=== PATIENT | female | born 1940 | race Two or more races ===

== ENCOUNTER 2024-04-24 09:35 | Day surgery (SDC) | payer MEDICARE, MEDICAID, SELFPAY ==
--- NOTE | 2024-04-21 07:00 | EKG_ITS ---
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
[2024-04-21 09:36] VITALS: BMI 30.7
[2024-04-21 10:06] LABS: Collection Type, Urine Clean Catch
[2024-04-21 11:06] LABS: Bilirubin,Urine Negative (Negative); Blood,Urine 1+ (Negative); Clarity,Urine Clear (Clear/Hazy); Color,Urine Lt-Yellow (Lt Yel-Yel); Glucose, Urine Negative (Negative); Ketones,Urine Negative (Negative); Leukocyte Esterase,Urine Negative (Negative); Nitrite,Urine Negative (Negative); Protein,Urine Trace (Neg - Trace); RBC,Urine 7 /hpf (0-3); Specific Gravity,Urine 1.011 (1.001-1.035); Squamous Epithelial Cell,Urine 3 /hpf (0-5); Urobilinogen,Urine Negative mg/dL (0.0-1.0); WBC,Urine 2 /hpf (0-5)
[2024-04-21 11:10] LABS: Basophils # (Auto) 0.1 Thou/mm3 (0.0-0.2); Basophils % (Auto) 1 % (0-2.5); Eosinophils # (Auto) 0.1 Thou/mm3 (0.0-0.5); Eosinophils % (Auto) 2 % (0-10); Hematocrit 40.7 % (36.0-46.0); Hemoglobin 13.5 g/dL (12.0-16.0); Immature Granulocytes % (Auto) 0 % (0-0); Immature Granulocytes Auto 0.02 Thou/mm3 (0.00-0.00); Lymphocytes # (Auto) 1.8 Thou/mm3 (1.0-4.8); Lymphocytes % (Auto) 30 % (10-50); Mean Corpuscular HGB Conc 33.2 g/dl (31.0-37.0); Mean Corpuscular Hemoglobin 31.3 pg (25.0-35.0); Mean Corpuscular Volume 94 fL (80-100); Monocytes # (Auto) 0.5 Thou/mm3 (0.0-0.8); Monocytes % (Auto) 9 % (0-12); Neutrophils # (Auto) 3.3 Thou/mm3 (1.8-7.7); Neutrophils % (Auto) 57 % (37-80); Nucleated Red Blood Cell % 0 /100 WBC (0); Platelet Count 218 Thou/mm3 (140-440); RDW Standard Deviation 44.3 fL (36.4-46.3); Red Blood Count 4.32 Miln/mm3 (4.00-5.20); White Blood Count 5.8 Thou/mm3 (3.6-11.0)
[2024-04-21 11:17] LABS: INR 0.9 (0.9-1.3); Partial Thromboplastin Time 30.2 Seconds (22.0-36.0); Prothrombin Time 10.3 Seconds (9.0-12.2)
[2024-04-21 11:45] LABS: Alanine Aminotransferase 20 U/L (10-49); Albumin, Serum 4.8 gm/dL (3.4-4.8); Albumin/Globulin Ratio 1.8 (1.2-2.2); Alkaline Phosphatase 131 U/L (46-116); Anion Gap 4 (7-16); Aspartate Amino Transferase 28 U/L (0-34); BUN/Creatinine Ratio 18 Ratio (12-20); Blood Urea Nitrogen 16 mg/dL (9-23); Calcium 9.8 mg/dL (8.3-10.6); Calcium (Corrected) 9.8 mg/dL (8.5-10.1); Carbon Dioxide 28.4 mMol/L (20.0-31.0); Chloride 106 mMol/L (98-107); Creatinine (Component) 0.9 mg/dL (0.6-1.3); Estimated Creatinine Clearance 41.1 mL/min (>60); Globulin 2.6 gm/dL (2.3-3.5); Glucose 99 mg/dL (74-106); Osmolality,Calculated 276 (275-295); Potassium 4.1 mMol/L (3.4-5.1); Sodium 138 mMol/L (136-145); Total Protein 7.4 gm/dL (5.7-8.2); eGFR > 60 See Note
--- NOTE | 2024-04-21 14:09 | SUR.PREOP ---
Cardiac history and records reviewed with Dr Chiang.
--- NOTE | 2024-04-21 14:10 | SUR.PREOP ---
Pt has a pacemaker but did not bring the pacemaker ID card.
[2024-04-21 14:28] LABS: Bilirubin,Total 0.3 mg/dL (0.3-1.2)
--- NOTE | 2024-04-22 11:09 | ESHP_ITS ---
HPI Date of Admission April 24, 2024 Chief Complaint Chief Complaint: Right upper quadrant abdominal pain and biliary colic. Gallstones. HPI This is an 83-year-old female she has gone to the emergency room several times in last 25 to 30 years and with complaints of right upper quadrant pain she was advised to have cholecystectomy many years ago but she declined at that time. She had multiple evaluations including CAT scan and HIDA scan among others with ultrasound exams. She was multiple times told that she had gallstones and she needs to have the cholecystectomy. Until this time she was not ready. Now lately for past 6 months to a year she is having very frequent right upper quadrant postprandial pain. He went to the emergency room and she was told that her gallbladder was all distended and there was a stone on the ultrasound. She is brought to the operating room for laparoscopic cholecystectomy possible open for ongoing symptomatic gallbladder disease with biliary colic and right upper quadrant pain. Risk benefits and alternatives were discussed with the patient and informed consent is obtained. She has a history of coronary artery disease she had angiogram and stent placement many years ago and she also had a pacemaker implanted on the left subclavian region. She is seeing a helicopter pilot instructor in [place] and she was cleared by the helicopter pilot instructor for having surgical procedure. Past Medical History Past Medical History NEUROLOGIC: Negative Neurological Disorders CARDIAC: Positive Cardiac Disorders, Coronary Artery Disease and Hypertension; Negative Congestive Heart Failure RESPIRATORY: Negative Respiratory Disorders or Chronic Obstructive Pulmonary Disease (COPD) GASTROINTESTINAL: Positive Gastrointestinal Disorders and Obesity; Negative Hepatitis GENITOURINARY: Negative Genitourinary Disorders or Renal Disease REPRODUCTIVE: Positive Previous Pregnancies MUSCULOSKELETAL: Negative Musculoskeletal Disorders ENT: Negative History of ENT Problems ENDOCRINE: Negative Endocrine Disorders, Diabetes Mellitus Type 1 or Diabetes Mellitus Type 2 HEMATOLOGIC: Negative Blood Disorders OTHER HISTORY: Positive Hospitalization (Abdominal pain), Chicken Pox and Measles; Negative Autoimmune Disease, Shingles, Blood Transfusions, Anesthesia Reactions or Cancer Family History FAMILY HISTORY: Negative Family Psychiatric Problems, Family Respiratory Disorders, Family Cardiac Disorders, Family Gastrointestinal Problems, Family Genitourinary Problems, Family Endocrine Disorders, Family Reproductive Disorders, Family Musculoskeletal Disorders, Family Cancer, Family Surgery or Family Anesthesia Reaction Surgical History SURGICAL: Positive Coronary Stent (2021), Pacemaker and Angiogram (coronary) Social History SMOKING STATUS: Current some day smoker Travel History EB[place]A RISK: No Meds Home Medications and Allergies Home Medications ?Medication ?Instructions ?Recorded ?Confirmed ?Type amlodipine 5 mg tablet 5 mg PO QDAY 04/21/24 04/21/24 History ibuprofen 600 mg tablet 600 mg PO TID PRN Pain 04/21/24 04/21/24 History Allergies Allergy/AdvReac Type Severity Reaction Status Date / Time No Known Allergies Allergy Verified 04/21/24 09:34 Exam Constitutional Constitutional: no acute distress Routine HEENT Exam Head: Present normocephalic Eye: Present EOMI and PERRL ENT: Present mucous membranes moist Routine Neck Exam Neck: Present supple and trachea midline Routine Chest/Breast/Axilla Exam Chest wall: Absent tenderness or mass Routine Respiratory Exam Respiratory: Present chest non-tender, lungs clear, normal breath sounds and no resp distress; Absent respiratory distress Routine Cardiovascular Exam Cardiovascular: Present RRR Comments: Pacemaker is present in the left subclavian region. Routine Abdominal Exam Abdominal: Present soft and normoactive bowel sounds Routine Extremities Exam Extremities: Present full ROM Routine Skin Exam Skin: Present intact, dry and warm Routine Neurological Exam Neurological: Present alert, oriented X3 and CN II-XII intact Routine Psychiatric Exam Psychiatric: Present normal affect and normal thought process Results Results: Laboratory Laboratory results: results reviewed Assessment & Plan Problem List (1) Recurrent biliary colic: Status: Acute (2) Coronary artery disease: Qualifiers: Coronary Disease-Associated Artery/Lesion type: [place] artery [place] vs. transplanted heart: [place] heart Associated angina: without angina Qualified Code(s): I25.10 - Atherosclerotic heart disease of [place] coronary artery without angina pectoris Status: Acute (3) Pacemaker: Status: Acute Plan Laparoscopic cholecystectomy possible open. Risk benefits alternatives were discussed with the patient and informed consent is obtained. Quality Measures Quality Measures none Advance care planning discussed with:: patient
[2024-04-24] VITALS (8 sets, daily range): BP systolic 105–144; BP diastolic 58–94; PULSE 67–101; RESP 12–20; TEMP 36.2–36.5; O2SAT 96–100
[2024-04-24] MEDS: RINGERS LACTATED 1000 ML 1,000 ML 60 ML IV (10:31)
--- NOTE | 2024-04-24 13:00 | PD.SUROPNT ---
Date of Procedure 04/24/24 Pre Op Diagnosis Biliary colic and abdominal pain in the right upper quadrant with postprandial exacerbation Post Op Diagnosis Hydrops of the gallbladder. Procedure Laparoscopic cholecystectomy Findings This patient had significant adhesions to the gallbladder and the liver and she had hydrops of the gallbladder with markedly distended gallbladder that required decompression with needle aspiration. Procedure Description In the preop area the procedure was discussed with the patient including risks benefits and alternatives. The risks include possible laparotomy, bleeding, infection bile duct injury and bile leak. Patient may require ERCP for retained stone or a bile leak. The anesthesia risks are to be explained to the patient by the anesthesiologist. Informed consent was obtained. The patient was positioned supine on the operating table and general anesthesia was administered in a satisfactory manner by the anesthesiologist. The patient is positioned in the reverse Trendelenburg position with the right side up. Orogastric tube is introduced into the stomach to decompress the stomach. Prophylactic antibiotics were given in timely manner. Antiembolism measures were taken. The abdomen chest and groin regions were prepped and draped in usual manner. A supraumbilical verticle incision was made and deepened through the layers of abdominal wall and open laparoscopic procedure is carried out. The balloon catheter was introduced and pneumoperitoneum is achieved. A 30? scope was used. Under direct vision right subxiphoid, midclavicular and anterior axillary line trochars were introduced. The gallbladder is then lifted up and a laparoscopic lysis of adhesions was carried out. The gallbladder is freed from the adhesions and the edgardo hepatis is exposed. The triangle of Calot is gently dissected and the artery to cystic duct is divided with harmonic ultrasonic uriel. The posterior view of safety was achieved. The cystic artery and cystic duct are identified individually and they were ligated close to the gallbladder with hemoclips. There was an accessory cystic artery as well as multiple branches of the cystic artery proper. They were all individually controlled and divided. The cystic artery and the cystic duct are divided between the hemoclips close to the gallbladder. Care was taken to avoid tenting of the common duct. There is a significant length of cystic duct stump towards the common bile duct. The gallbladder is dissected and lifted from the liver bed using harmonic ultrasonic uriel. The gallbladder bed hemostasis is achieved. The gallbladder is retrieved out of the peritoneal cavity in a specimen bag. The balloon cannula is reintroduced and pneumoperitoneum is reestablished. The peritoneal cavity is thoroughly irrigated with sterile saline solution and hemostasis again ascertained. All the cannulas are removed under direct vision there is no bleeding from the cannula sites. The linea alba repair is carried out with the 0 Vicryl continuous suture. The subcutaneous tissues approximated by a 3-0 chromic and skin by 4-0 monocril subcuticular stitch. For the rest of the trocar site incisions are closed in 2 layers with a 3-0 chromic and 4-0 monocril subcuticular stitch. Dermabond is applied. Sterile dressings are applied. Complications none estimated loss of blood 10 mL Patient is transferred to the recovery room in a satisfactory condition. Anesthesia GETA Drains None. Implants None. Pathology / specimen Other (Gallbladder with contents) Estimated Blood Loss 5 Condition Stable Disposition PACU Surgeon Sanjay Hallman MD Surgical Staff Operation Date: 04/24/24 12:15 Case Staff Anesthesiologist: Davy Álvarez RN First Assistant: Emili Lopez RN correspondence review clerk Braulio Vera dairy technologist
--- NOTE | 2024-04-24 13:13 | SUR.PHASEI ---
1313: Pt. AAOx4, vitals stable, breathing unlabored, complaint of pain, will give pain med, no complaint of nausea, x4 dressing to ABD CDI, no active bleed noted, report received from MD Álvarez and Elvis MENESES.
[2024-04-24] MEDS: fentaNYL CIT INJ 50 mCg/ML AMP 2ML 25 MCG IV ×3 (13:17→13:36)
--- NOTE | 2024-04-24 14:20 | SUR.PHASEII ---
1420: Pt. AAOx4, vitals stable, breathing unlabored, no complaint of pain or nausea, x4 dressing to ABD CDI, no active bleed noted, pt. tolerated sips of soda well, pt. ambulated to wheelchair with steady gait and no assist, no complications. Gave discharge instructions to the pt. and her ride using wood pole treater Diana [id number], both verbalized understanding and had no further questions. Pt. left wtih all personal belongings.
== END 2024-04-24 14:20 | disposition home or self-care (01) ==
PROVIDERS: PCP Physician Assistant; Referring Provider Specialist; Visit Provider Specialist
PROC: 0FT44ZZ Resection of Gallbladder, Percutaneous Endoscopic Approach (ICD-10-PCS; CPT 47562; principal; 2024-04-24 12:15)
DX: K82.1 Hydrops of gallbladder (principal); K80.50 Calculus of bile duct without cholangitis or cholecystitis without obstruction; E66.9 Obesity, unspecified; F17.200 Nicotine dependence, unspecified, uncomplicated; I10 Essential (primary) hypertension; I25.10 Atherosclerotic heart disease of native coronary artery without angina pectoris; Z95.0 Presence of cardiac pacemaker; Z95.5 Presence of coronary angioplasty implant and graft; Z01.810 Encounter for preprocedural cardiovascular examination; K82.8 Other specified diseases of gallbladder; K80.10 Calculus of gallbladder with chronic cholecystitis without obstruction; Z68.30 Body mass index [BMI] 30.0-30.9, adult
CPT/HCPCS: 47562; 36415; 80053; 81001; 85025; 85610; 85730; 93005; A4217; A4649; J0694; J1100; J2250; J2371; J2405; J2704; J2795; J3010; J3490; J7120

== ENCOUNTER 2025-05-07 17:38 | Observation (INO) | payer MEDICARE, MEDICAID, SELFPAY ==
[2025-05-04 08:49] VITALS: BMI 33.8
[2025-05-04 11:15] LABS: Basophils # (Auto) 0.1 Thou/mm3 (0.0-0.2); Basophils % (Auto) 1 % (0-2.5); Eosinophils # (Auto) 0.2 Thou/mm3 (0.0-0.5); Eosinophils % (Auto) 2 % (0-10); Hematocrit 38.0 % (36.0-46.0); Hemoglobin 12.2 g/dL (12.0-16.0); Immature Granulocytes Auto 0.03 Thou/mm3 (0.00-0.00); Lymphocytes # (Auto) 2.0 Thou/mm3 (1.0-4.8); Lymphocytes % (Auto) 25 % (10-50); Mean Corpuscular HGB Conc 32.1 g/dl (31.0-37.0); Mean Corpuscular Hemoglobin 31.5 pg (25.0-35.0); Mean Corpuscular Volume 98 fL (80-100); Monocytes # (Auto) 0.8 Thou/mm3 (0.0-0.8); Monocytes % (Auto) 9 % (0-12); Neutrophils # (Auto) 5.1 Thou/mm3 (1.8-7.7); Neutrophils % (Auto) 63 % (37-80); Nucleated Red Blood Cell # 0.00 Thou/mm3 (0.00-0.00); Nucleated Red Blood Cell % 0 /100 WBC (0); Platelet Count 212 Thou/mm3 (140-440); RDW Standard Deviation 49.0 fL (36.4-46.3); Red Blood Count 3.87 Miln/mm3 (4.00-5.20); White Blood Count 8.0 Thou/mm3 (3.6-11.0)
[2025-05-04 11:17] LABS: Collection Type, Urine Clean Catch
[2025-05-04 11:22] LABS: Partial Thromboplastin Time 31.6 Seconds (22.0-36.0)
[2025-05-04 11:25] LABS: Alanine Aminotransferase 15 U/L (10-49); Albumin, Serum 4.8 gm/dL (3.4-4.8); Albumin/Globulin Ratio 1.8 (1.2-2.2); Alkaline Phosphatase 155 U/L (46-116); Anion Gap 9 (7-16); Aspartate Amino Transferase 22 U/L (0-34); BUN/Creatinine Ratio 16 Ratio (12-20); Bilirubin,Total 0.4 mg/dL (0.3-1.2); Blood Urea Nitrogen 16 mg/dL (9-23); Calcium 9.4 mg/dL (8.3-10.6); Calcium (Corrected) 9.4 mg/dL (8.5-10.1); Carbon Dioxide 28.4 mMol/L (20.0-31.0); Chloride 104 mMol/L (98-107); Creatinine (Component) 1.0 mg/dL (0.6-1.3); Estimated Creatinine Clearance 35.0 mL/min (>60); Globulin 2.6 gm/dL (2.3-3.5); Glucose 107 mg/dL (74-106); Osmolality,Calculated 282 (275-295); Potassium 4.1 mMol/L (3.4-5.1); Sodium 141 mMol/L (136-145); Total Protein 7.4 gm/dL (5.7-8.2); eGFR 55 See Note
[2025-05-04 11:34] LABS: Bilirubin,Urine Negative (Negative); Blood,Urine 1+ (Negative); Clarity,Urine Clear (Clear/Hazy); Color,Urine Lt-Yellow (Lt Yel-Yel); Glucose, Urine Negative (Negative); Ketones,Urine Negative (Negative); Leukocyte Esterase,Urine Negative (Negative); Nitrite,Urine Negative (Negative); PH,Urine 5.5 (5.0-7.0); Protein,Urine Negative (Neg - Trace); RBC,Urine < 1 /hpf (0-3); Specific Gravity,Urine 1.007 (1.001-1.035); Squamous Epithelial Cell,Urine 4 /hpf (0-5); Urobilinogen,Urine Negative mg/dL (0.0-1.0); WBC,Urine < 1 /hpf (0-5)
[2025-05-07] VITALS (13 sets, daily range): BP systolic 124–170; BP diastolic 65–78; PULSE 82–104; RESP 12–20; TEMP 36.1–36.5; O2SAT 96–100; BMI 33.5; BMI 28.5
--- NOTE | 2025-05-07 15:38 | ESOP_ITS ---
Date of Procedure 05/07/25 Pre Op Diagnosis Incarcerated ventral hernia Post Op Diagnosis Same with incarceration of the small bowel and omentum Procedure Laparoscopic reduction of incarcerated ventral hernia. Laparoscopic repair of the ventral hernia with implantation of a patch and partial omentectomy on 05/07/2025 Findings This patient had incarcerated ventral hernia and upon exploration she was found to have omentum and small bowel and the hernia sac. This she had significant amount of adhesions of the omentum to anterior abdominal wall that required a laparoscopic lysis of adhesions. The bowel loop which was incarcerated was edematous but appeared to be viable. Procedure Description The patient is interviewed in the preoperative area and the procedure was discussed in detail with the patient including expectation of outcomes. Explanation of the technique and complications. An informed consent was obtained. Anesthesia consent was obtained by the anesthesiologist. The hernia sites were marked on the surface. Patient is brought back to the operating room. The patient is positioned supine on the operating table and general anesthesia is administered in a satisfactory manner. The chest abdomen and thigh genitalia regions are prepped and draped in usual manner. IV antibiotics were given and a timeout procedure was carried out. Intraoperative ultrasound is carried out with 7.5 MHz linear digital ultrasound probe. The hernia defect was identified and marked on the surface to assess the extent of the procedure. Then open laparoscopic procedure is carried out and the balloon cannula is introduced on the left side of the patient in the flank. The 10 mm trocar was introduced in the left upper quadrant and 1 in the left lower quadrant. Laparoscopic examination is carried out. The above-mentioned findings are noted and the incarcerated bowel and the omentum were reduced. There was a portion of omentum that was adherent with the sac that needed to be resected and it was removed as specimen. There were other areas of adhesions to the anterior abdominal wall next to the hernia and lysis of adhesions is carried out. After this the defect is delineated. The defect is repaired by interrupted 2-0 Ethibond sutures with the laparoscopic techniques. After this was repaired in a satisfactory manner of the underlay patch was positioned measuring 15 cm x 20 cm. The patch is inserted after putting sutures on both the corners and then it was rolled in and then it was unrolled in the peritoneal cavity. Grasper was introduced in midline abdomen below the patch and the sutures were grasped and the patch was pulled up. A tacker was used to tack the patch in place. Patch was lines satisfactorily in this location. After that all the cannulas were removed under direct vision there is no bleeding from the cannula sites. The subcutaneous tissue was approximated by 3-0 chromic and 4-0 nylon for the skin. Patient tolerated the procedure very well complications none. Patient is transferred to recovery room in a satisfactory condition. Anesthesia GETA Implants Hernia patch 15 x 20 cm Pathology / specimen Other (Omentum) Estimated Blood Loss 10 Condition Stable Disposition PACU Surgeon Sanjay Hallman MD Surgical Staff Operation Date: 05/07/25 12:30 Case Staff WAFER FAB OPERATOR: Kunal Nelson RN First Assistant: Delia Carmona RNportable irrigation operator: Morena Dumont molecular technologist Aram MENESES automatic punch press operator
--- NOTE | 2025-05-07 15:39 | SUR.PHASEI ---
1539: Pt. wakes to name then drifts back to sleep, vitals stable, breathing unlabored, no complaint of pain or nausea, x9 port incisions to ABD CDI, no active bleed noted, report received from Viktoriya MENESES and Kunal FINCH.
[2025-05-07] MEDS: fentaNYL CIT INJ 50 mCg/ML AMP 2ML IVP (15:59)
--- NOTE | 2025-05-07 16:35 | SUR.PHASEII ---
pt drowsy but arouses to voice, breathing unlabored, dressing to abdomen clean, dry, and intact, report from Ana MENESES
--- NOTE | 2025-05-07 16:35 | SUR.PHASEII ---
1635: Pt. wakes to name then drifts back to sleep, vitals stable, breathing unlabored, no signs of distress, x9 incision sites to ABD CDI, no active bleed noted, Pt. and her ride made aware that pt. will be staying the night for observation. Report given to Jil Catalan RN to resume care of pt.
--- NOTE | 2025-05-07 17:45 | SUR.PHASEII ---
pt awake, alert, able to follow commands, breathing unlabored on 2 L NC, dressing to abdomen clean, dry, and intact, pt tolerating oral fluids without difficulty swallowing or n/v, report called to Morena MENESES, pt transferred to room at this time.
[2025-05-07] MEDS: HYDROmorphone INJ 2 MG/ML VIAL 1 MG IVP (22:08)
[2025-05-07] MEDS: ONDANSETRON INJ 2 MG/ML INJ 2 ML 4 MG IV (22:09)
[2025-05-07] MEDS: RINGERS LACTATED 1000 ML 1,000 ML 60 ML IV (22:16)
[2025-05-08] VITALS: BP 98/66; PULSE 102; RESP 20; TEMP 36.4; O2SAT 98
[2025-05-08 04:00] VITALS: BP 98/66; PULSE 100; RESP 18; TEMP 36.6; O2SAT 93
[2025-05-08 08:00] VITALS: BP 103/69; PULSE 84; RESP 16; TEMP 36.2; O2SAT 94
[2025-05-08 08:14] VITALS: BP 103/69; PULSE 98
[2025-05-08] MEDS: HYDROmorphone INJ 2 MG/ML VIAL 1 MG IVP (08:15)
[2025-05-08] MEDS: ONDANSETRON INJ 2 MG/ML INJ 2 ML 4 MG IV (08:59)
[2025-05-08 12:00] VITALS: BP 105/56; PULSE 83; RESP 17; TEMP 36.4; O2SAT 94
--- NOTE | 2025-05-08 12:37 | PD.SURDS ---
Planned Discharge Date 05/08/25 DS: Providers Provider Date of admission: 05/07/25 17:38 Primary care physician: Nitza Masters PA-C Admitting Provider: Sanjay Hallman MD Attending Provider on Admission: Sanjay Hallman MD Attending Provider on DC: Sanjay Hallman MD Discharging Provider: Sanjay Hallman MD Diagnosis Discharge Diagnosis (1) Incarcerated ventral hernia: Status: Acute (2) Postoperative pain: Status: Acute Problem List Completed Was Problem List Reviewed/Reconciled?: Yes Hospital Course Patient is admitted after laparoscopic ventral hernia repair. She is doing very well. She has minimal pain and is tolerating regular diet well. She is discharged home to be followed in office in 1 week. Exam Vital Signs Temp Pulse Resp BP Pulse Ox O2 Del Method O2 Flow Rate 97.6 F 83 17 105/56 L 94 L Nasal Cannula 1 05/08/25 12:00 05/08/25 12:00 05/08/25 12:00 05/08/25 12:00 05/08/25 12:00 05/08/25 12:00 05/08/25 12:00 FiO2 3 05/08/25 12:00 Narrative Exam Abdomn is soft and nontender. Incisions are healing well. Bowel tones are normal. Cardiopulmonary exam is normal. Discharge Plan Plan Patient Disposition: HOME (Self Care) Disposition Comment: Follow up in office in 2 weeks. Prescriptions/Referrals Prescriptions/Med Rec: New hydrocodone-acetaminophen 7.5-325 mg tablet 1 tab PO Q6H MDD 7 PRN (Reason: pain) Qty: 30 0RF Continued amlodipine 5 mg Tablet 5 mg PO QDAY Discontinued acetaminophen 325 mg tablet 650 mg PO Q4H PRN (Reason: pain) Patient Comments: TAKE 2 TABLETS BY MOUTH EVERY 4-6 HOURS NEEDED FOR PAIN OR FEVER Referrals: Nitza Masters PA-C [Primary Care Provider, Emergency Medicine] Patient/Caregiver Discharge Instructions Other Discharge Activity Instructions:: Keep incisions dry. May take shower in 2 days. Follow up in office in 2 weeks Other Discharge Diet Instructions: Regular diet Print Language: Czech Stand Alone Forms: Sylvie Award Info., Patient Portal Info Letter, Work/Release Restrictions Discharge Order Discharge Orders: Discharge (Routine); Ordered 05/08/25 Ordered By: Sanjay Hallman PROCEDURES: Procedure Date 05/07/25 Procedures Laparoscopic reduction of incarcerated ventral hernia. Laparoscopic repair of the ventral hernia with implantation of a patch and partial omentectomy on 05/07/2025
--- NOTE | 2025-05-09 11:04 | CHAP ---
Patient was visited by a Spiritual Care Volunteer on 05/08/2025 between 0850 and 1200 and received comfort, encouragement and/or prayer.
== END 2025-05-08 14:19 | disposition home or self-care (01) ==
LOC: S3SX 05-08 09:50
PROVIDERS: Admitting Provider Specialist; PCP Physician Assistant; Referring Provider Specialist; Visit Provider Specialist
PROC: 0WQF4ZZ Repair Abdominal Wall, Percutaneous Endoscopic Approach (ICD-10-PCS; CPT 49592; principal; 2025-05-07 12:15)
DX: K43.6 Other and unspecified ventral hernia with obstruction, without gangrene (principal); G89.18 Other acute postprocedural pain
CPT/HCPCS: 49592; 36415; 80053; 81001; 85025; 85730; 96374; 96375; 96376; A4649; C1781; G0378; J0131; J0690; J1100; J1171; J1885; J2405; J2704; J3010; J3490; J7120; A9270; J1805